=== PATIENT | female | born 1980 ===

== ENCOUNTER 2016-09-03 05:01 | Day surgery (SDC) | payer OTHER ==
--- NOTE | 2016-09-03 05:08 | C.PDOC ---
History Of Present Illness pt presents with llq pain worsening over the last week. No f/c/n/v Sharp , throbbing pain Time Seen by Provider: 09/03/16 05:08 Chief Complaint (Nursing): Abdominal Pain History Per: Patient History/Exam Limitations: no limitations Onset/Duration Of Symptoms: Days (7) Current Symptoms Are (Timing): Still Present Context: Other Severity: Moderate Pain Scale Rating Of: 4 Location Of Pain/Discomfort: LLQ Radiation Of Pain To:: None Quality Of Discomfort: Sharp, Aching, Cramping Associated Symptoms: denies: Fever, Chills, Nausea Exacerbating Factors: None Alleviating Factors: None Last Bowel Movement: Yesterday Recent travel outside of the [place]: No Additional History Per: Patient Past Medical History Reviewed: Historical Data, Nursing Documentation, Vital Signs Vital Signs: Last Vital Signs Temp 97.9 F 09/03/16 05:07 Pulse 67 09/03/16 05:07 Resp 20 09/03/16 05:07 BP 133/83 09/03/16 05:07 Pulse Ox 98 09/03/16 05:07 Family History: States: No Known Family Hx Review Of Systems Constitutional: Negative for: Fever, Chills Cardiovascular: Negative for: Chest Pain Respiratory: Negative for: Shortness of Breath Gastrointestinal: Positive for: Abdominal Pain (llq). Negative for: Nausea, Vomiting Genitourinary: Negative for: Dysuria Musculoskeletal: Negative for: Back Pain Skin: Negative for: Rash Neurological: Negative for: Weakness Psych: Negative for: Anxiety Physical Exam - Physical Exam Appears: Non-toxic Skin: Warm, Dry Cardiovascular: Rhythm Regular Respiratory: No Rales, No Rhonchi, No Wheezing Gastrointestinal/Abdominal: Soft, Tenderness (llq), No Distention, No Guarding, No Rebound Back: Normal Inspection Extremity: Normal ROM Extremity: Bilateral: Atraumatic, Normal Color And Temperature Neurological/Psych: Oriented x3, Normal Speech, Normal Cognition Gait: Steady ED Course And Treatment O2 Sat by Pulse Oximetry: 98 Pulse Ox Interpretation: Normal Disposition Discussed With : Kristofer Veloz Comment: accepted the pt on her service and took over the care at 5:40 AM Doctor Will See Patient In The: ED Counseled Patient/Family Regarding: Studies Performed, Diagnosis - Disposition Disposition: HOSPITALIZED Disposition Time: 05:08 Condition: FAIR - Clinical Impression Clinical Impression: Pain in pelvis
[2016-09-03] MEDS ORDERED: Sodium Chloride 0.9% 1,000 ML IV ONE (05:15)
[2016-09-03 05:28] LABS: BASO % 0.6 % (0.0-2.0); EOS # 0.1 K/uL (0.0-0.7); EOS % 1.2 % (0.0-4.0); HEMATOCRIT 39.6 % (34.0-47.0); LYMPH # 2.8 K/uL (1.0-4.3); LYMPH % 33.6 % (20.0-40.0); MEAN CORPUSCULAR HEMOGLOBIN 29.2 pg (27.0-31.0); MEAN CORPUSCULAR HGB CONC 33.1 g/dL (33.0-37.0); MEAN PLATELET VOLUME 10.1 fL (7.2-11.7); MONO # 0.6 K/uL (0.0-0.8); MONO % 6.9 % (0.0-10.0); WHITE BLOOD COUNT 8.4 K/uL (4.8-10.8)
[2016-09-03 05:33] LABS: RBC URINE < 1 /hpf (0-3); URINE BACTERIA RARE (<OCC); URINE BILIRUBIN NEGATIVE (NEGATIVE); URINE BLOOD NEGATIVE (NEGATIVE); URINE COLOR Yellow (YELLOW); URINE GLUCOSE (UA) NORMAL (Normal); URINE KETONE NEGATIVE (NEGATIVE); URINE LEUKOCYTE ESTERASE NEG Leu/uL (Negative); URINE PROTEIN NEGATIVE (NEGATIVE); URINE UROBILINOGEN NORMAL mg/dL (0.2-1.0); WBC URINE 1 /hpf (0-5)
[2016-09-03 05:37] LABS: INR 1.1
[2016-09-03] MEDS ORDERED: Sodium Chloride 0.9% 1,000 ML ONE (05:48)
[2016-09-03 05:53] LABS: CHLORIDE 101 mmol/L (98-107); SODIUM 140 mmol/L (132-148)
[2016-09-03 05:55] LABS: GFR AFRICAN-AMERICAN > 60
[2016-09-03 05:56] LABS: BLOOD UREA NITROGEN 15 mg/dL (7-17); CALCIUM 8.3 mg/dl (8.6-10.4); CARBON DIOXIDE 27 mmol/L (22-30); GLUCOSE,RANDOM 97 mg/dL (65-105)
--- NOTE | 2016-09-03 07:25 | CP.PCM.HP ---
History of Present Illness - History of Present Illness History of Present Illness: 36 y/o female presents to the ER with c/o worsening left lower quadrant pain.states that the pain this morning became very intense whiel she was in the bathroom and hence she came to the nearest ER.Pain is 10/10 and sharp.Patient also c/o nausea associated with pain .The pain is untolerable as per patient. ROS positive for abdominal paiun, left lower quadrant, nausea.Denies fever, chills, diarrhea. PMH denies PSH csection hysterectomy and RSO Social hx denies tobacco,alcohol or illicit drug use Present on Admission - Present on Admission Any Indicators Present on Admission: No Review of Systems - Review of Systems Systems not reviewed;Unavailable: Language Barrier - Constitutional Constitutional: absent: Chills, Headache, Weight Gain, Weight Loss - EENT Eyes: absent: Blurred Vision - Cardiovascular Cardiovascular: absent: Chest Pain, Dyspnea - Respiratory Respiratory: absent: Cough, Dyspnea - Gastrointestinal Gastrointestinal: Abdominal Pain, Nausea - Genitourinary Genitourinary: absent: Dysuria, Urinary Frequency - Reproductive: Female Reproductive:Female: S/P Hysterectomy - Neurological Neurological: absent: Abnormal Gait - Psychiatric Psychiatric: absent: Abnormal Sleep Pattern - Endocrine Endocrine: absent: Polyuria Past Patient History - Infectious Disease Hx of Infectious Diseases: None - Past Medical History & Family History Past Medical History?: Yes Past Family History: Reviewed and not pertinent Pertinent Family History: Family hx of colon cancer - Past Social History Smoking Status: Never Smoked - PULMONARY Hx Respiratory Disorders: No - NEUROLOGICAL Hx Neurological Disorder: No - HEENT Hx HEENT Problems: No - RENAL Hx Chronic Kidney Disease: No - ENDOCRINE/METABOLIC Hx Endocrine Disorders: No - HEMATOLOGICAL/ONCOLOGICAL Hx Blood Disorders: No - GASTROINTESTINAL Hx Gastrointestinal Disorders: No - GENITOURINARY/GYNECOLOGICAL Hx Sexually Transmitted Disorders: No Hx Uterine Cancer: No - PSYCHIATRIC Hx Psychophysiologic Disorder: No Hx Substance Use: No - SURGICAL HISTORY Hx Surgeries: Yes Hx Section: Yes Other/Comment: right oophorectomy and hysterectomy - ANESTHESIA Hx Anesthesia: Yes Hx Anesthesia Reactions: No Meds Allergies/Adverse Reactions: Allergies Allergy/AdvReac Type Severity Reaction Status Date / Time No Known Allergies Allergy Verified 09/03/16 05:12 Physical Exam - Constitutional Appears: No Acute Distress - Respiratory Exam Respiratory Exam: Clear to Auscultation Bilateral, NORMAL BREATHING PATTERN - GI/Abdominal Exam GI & Abdominal Exam: Guarding, Rebound, Soft, Tenderness - Extremities Exam Extremities exam: Negative for: calf tenderness - Back Exam Back exam: absent: CVA tenderness (L), CVA tenderness (R) - Neurological Exam Neurological exam: Alert, Normal Gait, Oriented x3 - Skin Skin Exam: Normal Color Results - Vital Signs Recent Vital Signs: Last Vital Signs Temp 97.9 F 09/03/16 05:07 Pulse 67 09/03/16 05:07 Resp 20 09/03/16 05:07 BP 133/83 09/03/16 05:07 Pulse Ox 98 09/03/16 06:04 - Labs Result Diagrams: 09/03/16 05:24 09/03/16 05:24 Labs: Laboratory Results - last 24 hr 09/03/16 09/03/16 05:24 05:36 WBC 8.4 RBC 4.50 Hgb 13.1 Hct 39.6 MCV 88.0 MCH 29.2 MCHC 33.1 RDW 13.0 Plt Count 200 MPV 10.1 Neut % (Auto) 57.7 Lymph % (Auto) 33.6 [place] % (Auto) 6.9 Eos % (Auto) 1.2 Baso % (Auto) 0.6 Neut # 4.8 Lymph # 2.8 [place] # 0.6 Eos # 0.1 Baso # 0.0 PT 12.2 INR 1.1 APTT 33 Sodium 140 Potassium 4.0 Chloride 101 Carbon Dioxide 27 Anion Gap 17 BUN 15 Creatinine 0.6 L Est GFR ( Amer) > 60 Est GFR (Non-Af Amer) > 60 Random Glucose 97 Calcium 8.3 L Urine Color Yellow Urine Clarity Clear Urine pH 5.0 Ur Specific [place] 1.027 Urine Protein Negative Urine Glucose (UA) Normal Urine Ketones Negative Urine Blood Negative Urine Nitrate Negative Urine Bilirubin Negative Urine Urobilinogen Normal Ur Leukocyte Esterase Neg Urine WBC (Auto) 1 Urine RBC (Auto) < 1 Ur Squamous Epith Cells 1 Urine Bacteria Rare Urine HCG, Qual Negative Blood Type O POSITIVE Antibody Screen Negative Assessment & Plan (1) Pelvic pain Status: Acute (2) Left ovarian cyst Status: Acute - Assessment and Plan (Free Text) Assessment: 36 y/o left lower quadrant pain .Bedside ultrasound done in er and patient found to have complex left ovarian cyst. ? torsion Plan-admit patient -see orders -To the OR for left ovarian cystectomy possible LSO, possible laparotomy.Risks , benefits and alternatives discussed. All questions answered Decision To Admit - Pt Status Changed To: Hospital Disposition Of: SDS- Endo,OR,Cath,IR - . Bed Request Type: Same Day Surgery
[2016-09-03 07:27] VITALS: O2SAT 100
[2016-09-03] MEDS ORDERED: ePHEDrine 50 mg/ml Inj ONE (07:55)
[2016-09-03] MEDS ORDERED: Propofol 10 mg/ml Inj (20 ML) ONE (07:55)
[2016-09-03] MEDS ORDERED: Lidocaine Hydrochloride 5 ML INJ ONE (07:55)
[2016-09-03] MEDS ORDERED: Midazolam 2 MG/2 ML VIAL ONE (07:55)
[2016-09-03] MEDS ORDERED: Lactated Ringer's 1,000 ML IV ONE ×2 (07:55→09:38)
[2016-09-03] MEDS ORDERED: Phenylephrine 10 mg/ml Inj ONE (07:55)
[2016-09-03] MEDS ORDERED: ceFAZolin IV 1 gm in Dextrose 50 ML IVPB ONE (08:02)
[2016-09-03] MEDS ORDERED: Lidocaine 1% Inj (20ml) ONE (08:21)
[2016-09-03] MEDS ORDERED: HYDROmorphone 0.5 mg/0.5 ml ISec IVP PRN (08:39)
[2016-09-03] MEDS ORDERED: Neostigmine Methylsulfate 3mg/3ml Syringe IV ONE (09:20)
--- NOTE | 2016-09-03 11:32 | PCM.SURG1 ---
Surgeon's Initial Post Op Note - Surgeon's Notes Surgeon: Kristofer Veloz Clerical Transcriber: Dr Ayde Alba Type of Anesthesia: General Endo Anesthesia Administered By: Dr Satish Shore Pre-Operative Diagnosis: Pelvic pain, left lower quadrant pain, complex left ovarian cyst Operative Findings: Extensive adhesions between omentum and anterior abdominal wall.Bowel adhesions to abdominal wall and left pelvic side wall.Bowel adhesions to the vaginal cuff.Complex left ovarian cyst-hemorrhagic appearing Post-Operative Diagnosis: Same as preop diagnosis and intrabaominal and pelvic adhesions involving ometum and bowel Operation Performed: Operative laparoscopy, left salpingo-oophorectomy, extensive lysis of adhesions Specimen/Specimens Removed: left tube and ovary Estimated Blood Loss: EBL {In ML}: 50 Blood Products Given: N/A Drains Used: No Drains Post-Op Condition: Good Date of Surgery/Procedure: 09/03/16 Time of Surgery/Procedure: 08:21 (Operation start time) Addendum Addendum: 09/03/16 11:36 Intraoperative consult-Dr De Jesus.
[2016-09-03] MEDS ORDERED: Simethicone 80 mg Chewtab PO PRN (11:39)
[2016-09-03] MEDS ORDERED: Oxycodone/Acetaminophen 5/325 mg Tab PO PRN ×2 (11:39)
[2016-09-03] MEDS: HYDROmorphone 0.5 mg/0.5 ml ISec IVP PRN ×2 (12:00→12:15)
[2016-09-03] MEDS ORDERED: Lactated Ringer's 500 ML IV ONE (12:45)
[2016-09-03 13:33] VITALS: RESP 16
[2016-09-03 14:56] VITALS: BP 100/54; PULSE 75; TEMP 97.7
--- NOTE | 2016-09-04 11:10 | OP ---
PROCEDURE DATE: 09/03/2016 PREOPERATIVE DIAGNOSES: Left lower quadrant pain, pelvic pain, complex left ovarian cyst. PROCEDURE PERFORMED: Operative laparoscopy, left salpingo-oophorectomy, extensive lysis of adhesions. POSTOPERATIVE DIAGNOSES: Left lower quadrant pain, pelvic pain, complex left ovarian cyst, as well as intra-abdominal and pelvic adhesions involving the omentum and the bowel. OPERATIVE FINDINGS: Extensive adhesions noted between the omentum and the anterior abdominal wall as well as bowel adhesions noted to the abdominal wall and the left pelvic sidewall. Bowel adhesions to the vaginal cuff as well. Complex ovarian cyst, hemorrhagic in appearance. The left fallopian tube and the ovary densely adhered to the left pelvic side wall. SURGEON: Kristofer Veloz MD [employer]: Dr. Ayde Alba. INTRAOPERATIVE CONSULT: Dr. De Jesus from general surgery. Please note that this procedure required a surgical elastic knitter hand frame to assist with the entry into the abdominal cavity and to assist with lysis of adhesions and also to perform the left salpingo-oophorectomy. The surgical elastic knitter hand frame, which was Dr. Ayde Alba, was scrubbed and present for the entire duration of the procedure. ANESTHESIA: General endotracheal. ANESTHESIOLOGIST: Dr. Satish Shore. SPECIMEN: Left fallopian tube and ovary. ESTIMATED BLOOD LOSS: 50 mL. POSTOPERATIVE CONDITION: The patient's condition being stable at the end of the procedure. PROCEDURE IN DETAIL: The patient is a 36-year-old female who presented to the ER with complaint of severe pelvic pain and abdominal pain. The patient was noted to have a complex left ovarian cyst and thereafter she was taken to the OR for laparoscopic removal of the left adnexal mass. Once inside the OR, after informed consent was obtained, the patient was placed in the dorsal supine position. General anesthesia was introduced and the patient was intubated without any difficulty. The patient thereafter placed in dorsal lithotomy position. She was then prepped and draped in the usual sterile manner. A Hilton catheter was placed transurethrally to assist with the bladder drainage. A sponge stick was placed in the patient's vagina to assist with manipulation of the vaginal cuff. Attention was then turned to the patient's abdomen where a 5 mm skin incision was made in the umbilical fold after infiltrating with 0.25% Marcaine. The Veress was then introduced into the patient's abdomen and intraabdominal placement was confirmed with a drop in saline. The Veress was thereafter hooked up to the gas and pneumperitoneum created. Thereafter, the 5 mm trocar was placed in the umbilical port using the Visiport under direct visualization. Intraabdominal placement was confirmed with the help of the laparoscope. At this point, dense adhesions were noted between the omentum and the anterior abdominal wall as well as dense adhesions were noted between the bowel as well as the abdominal wall and the left pelvic side wall. Adhesions were noted to the vaginal cuff as well. At this point, the left ovary could not be visualized due to the adhesions. Lysis of adhesions was performed. Approximately 2 hours was spent in performing lysis of adhesions and at this point, the left fallopian tube and the ovary could be visualized. The left ovary appeared to have a complex appearing cyst which could be hemorrhagic versus an endometrioma. The left fallopian tube along with the ovary was engulfed into mass. At this point, due to the adhesions between the bowel and the left pelvic side wall, as well as the abdominal cavity, an intraoperative consult from Dr. De Jesus from general surgery was requested. Dr. De Jesus then scrubbed into the procedure and put a right upper quadrant port, which was also 5 mm.He then performed the lysis of adhesions. Please refer to his op note for details. Once he had performed the lysis of adhesions and the left adnexal mass involving the tube and ovary could be , the ureter was visualized on the left side and found to be peristalsing. The infundibulopelvic ligament was thereafter identified and it was cauterized and cut with the help of LigaSure, but very close to the ovary. Similarly, adhesions between the left tubo-ovarian complex and left pelvic side wall were also cauterized and cut and the specimen was obtained. The specimen was thereafter divided in half and taken out through two 5 mm ports. Irrigation was thereafter performed and the site of the dissection was inspected for hemostasis and adequate hemostasis was noted. The left side ureter was found to be peristalsing. The instruments were then removed from the patient's abdomen. FloSeal was placed over the left IP ligament The pressure was decreased and adequate hemostasis was still confirmed. The gas was thereafter turned off and the trocars were removed under direct visualization. The camera was thereafter removed. The skin sites were thereafter closed with 4-0 Monocryl in a subcuticular manner. The sponge stick was then removed from the patient's vagina. The Hilton catheter was discontinued. The patient was taken out of the dorsal lithotomy position. She was thereafter extubated and taken to the recovery room in stable condition. The specimen was sent to pathology. Kristofer Veloz MD cc: [id number] TT: 09/04/2016 11:09:52 sally LAO
--- NOTE | 2016-09-06 09:29 | OP ---
PROCEDURE DATE: 09/03/2016 INTRAOPERATIVE CONSULT CALLED BY: Dr. Eric Veloz and Dr. Alba. PREOPERATIVE DIAGNOSIS: Status post previous hysterectomy. POSTOPERATIVE DIAGNOSIS: Status post previous hysterectomy. PROCEDURE DONE: Laparoscopic extensive lysis of adhesion during the salpingo-oophorectomy by Dr. Allie mims and Dr. Veloz. ANESTHESIA: General endotracheal tube anesthesia. ESTIMATED BLOOD LOSS: Around 5 mL for the lysis of adhesion part of the procedure. COMPLICATIONS: None. INTRAOPERATIVE FINDINGS: The patient had extensive adhesions between the omentum and anterior abdomi nal wall and the colon to the lateral pelvic wall as well as to the vaginal cuff and the patient had a left ovarian cyst. INTRAOPERATIVE STEPS: This 36-year-old female who was seen as an intraoperative consult while operat ion for laparoscopic left salpingo-oophorectomy and the patient was found to have extensive adhesions and intraoperative surgery consult was called. The patient already had right lower quadrant as well umbilical and suprapubic ports, and a new right upper quadrant port was placed and extensive lysis o f adhesions was done and the colon was lysed from the pelvic wall and left ovarian cyst as well as th e left fallopian tube were , and after proper extensive lysis of adhesions, there was no corrie dence of and bowel injury and the procedure was continued by Dr. Veloz and Dr. Alba for salpingo-ooph orectomy. Kash De Jesus MD cc: [id number] TT: 09/05/2016 16:18:25 dn 09/06/2016 08:26:38
== END 2016-09-03 15:00 | disposition home or self-care (01) ==
LOC: C.ER 05:01 → C.SDS 06:27
PROVIDERS: ATTEND Student in an Organized Health Care Education/Training Program
DX: N83.202 Unspecified ovarian cyst, left side (principal); R10.32 Left lower quadrant pain; R10.2 Pelvic and perineal pain; N73.6 Female pelvic peritoneal adhesions (postinfective)
CPT/HCPCS: 49329; 58661; 80048; 81001; 84703; 85025; 85610; 85730; 86850; 86900; 88305; 96360; 96374; 99285; J0690; J1170; J2250; J2270; J2370; J2405; J2704; J2710; J3010; J7040; J7120